=== PATIENT | male | born 1975 | race African-American/Black ===

== ENCOUNTER 2019-04-23 07:30 | Inpatient (IN) | payer OTHER ==
[~2019-04-23 07:30] MED LIST: Buffered Lidocaine 1% SYRIN* 1 ML/SYRINGE INTRADERM ONE; Dexamethasone IV* 4 MG/ML 1 ML (4 MG) IV SLOW PU ONE; Famotidine IV* 10 MG/ML 2 ML (20 mg) IV ONE; Lactated Ringers 1000 ML Bag* 1,000 ML IV SCH; Tranexamic Acid 1,000 MG in NS 0.9% 50 ML* (outpatient use) IV SCH
[2019-04-23] MEDS ORDERED: Buffered Lidocaine 1% SYRIN* 1 ML/SYRINGE INTRADERM ONE (09:18)
[2019-04-23] MEDS ORDERED: Dexamethasone IV* 4 MG/ML 1 ML (4 MG) ONE ×2 (09:24→09:51)
[2019-04-23] MEDS ORDERED: Famotidine IV* 10 MG/ML 2 ML (20 mg) ONE (09:25)
[2019-04-23] MEDS ORDERED: ceFAZolin 2 GM in NS PREMIX(*) 2 GM/100 ML BAG IVPB ONE (09:25)
[2019-04-23] MEDS ORDERED: Midazolam* 1 MG/ML 5 ML VIAL (5 MG) ONE (09:51)
[2019-04-23] MEDS ORDERED: fentaNYL* 50 MCG/ML 5 ML VIAL (250 MCG VIAL) ONE (09:51)
[2019-04-23] MEDS ORDERED: Ondansetron INJ* 2 MG/ML VIAL ONE (09:51)
[2019-04-23] MEDS ORDERED: Lidocaine 2% PF * 5 ML VIAL ONE (09:51)
[2019-04-23] MEDS ORDERED: Propofol* 10 MG/ML 20 ML BTL ONE (09:51)
[2019-04-23] MEDS ORDERED: Rocuronium* 10 MG/ML VIAL ONE (09:51)
[2019-04-23] MEDS ORDERED: KETAMINE HCL* 50 MG/ML 10 ML VIAL ONE (09:52)
[2019-04-23] MEDS ORDERED: Ketorolac INJ* 30 MG/ML 1 ML VIAL ONE (09:52)
[2019-04-23] MEDS ORDERED: ROPIVACAINE 5 MG/ML 30 ML BTL (0.5%) ONE (10:19)
[2019-04-23] MEDS ORDERED: Naloxone* 0.4 MG/ML 1 ML VIAL IV PRN (12:21)
[2019-04-23] MEDS ORDERED: fentaNYL* 50 MCG/ML 2 ML VIAL (100 MCG VIAL) IV PRN (12:21)
[2019-04-23] MEDS ORDERED: Ondansetron INJ* 2 MG/ML VIAL IV PRN ×2 (12:21→13:46)
[2019-04-23] MEDS ORDERED: HYDROmorphone INJ1* 1 MG/ML SYRINGE ONE ×2 (12:57→14:11)
[2019-04-23] MEDS ORDERED: oxyCODONE TAB* 5 MG TAB PO PRN (13:46)
[2019-04-23] MEDS ORDERED: Polyethylene Glycol 3350* 17 GM PACKET PO PRN (13:46)
[2019-04-23] MEDS ORDERED: Morphine 4 MG/ML VIAL (1 ml) 4 MG/ML VIAL IV PRN (13:46)
[2019-04-23] MEDS ORDERED: Cyclobenzaprine TAB* 10 MG PO PRN (13:46)
[2019-04-23] MEDS ORDERED: diPHENhydraMINE IV* 50 MG/ML 1 ml VIAL (BENADRYL) IV PRN (13:46)
[2019-04-23] MEDS ORDERED: Bisacodyl SUPP* 10 MG SUPP PR PRN (13:46)
[2019-04-23] MEDS ORDERED: Magnesium Hydroxide LIQ* 30 ML UDC PO PRN (13:46)
[2019-04-23] MEDS ORDERED: diPHENhydraMINE PO* 25 MG PO PRN (13:46)
[2019-04-23] MEDS ORDERED: traMADol TAB* 50 MG PO PRN (13:46)
[2019-04-23] MEDS: HYDROmorphone INJ1* 1 MG/ML SYRINGE IV PRN ×2 (14:20→14:38)
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
[2019-04-23] MEDS: Lactated Ringers 1000 ML Bag* 1,000 ML IV SCH (16:37)
--- NOTE | 2019-04-23 17:23 | PN ---
Progress Note - Progress Note Date of Service: 04/23/19 - post-op Note: Patient was walking with PT when I arrived. He denies CP, SOB, calf pain or dizziness. His pain is well controlled. He can dorsi/plantar flex bilateral ankles with intact sensation and 2+ DP pulses. Skin is warm, calves are soft. Continue PT/OT with pain management and we will monitor.
[2019-04-23] MEDS ORDERED: Latanoprost 0.005%* 2.5 ml BTL BOTH EYES SCH (18:00)
[2019-04-23] MEDS: oxyCODONE/Acetamin 5/325 MG* TAB PO PRN (19:13)
[2019-04-23] MEDS: ceFAZolin 1 GM ADVAN(*) 1 GM in NS 0.9% 50 ML* 50 ML IVPB SCH (20:37)
[2019-04-23] MEDS ORDERED: Sertraline* 50 MG TAB PO SCH (21:00)
[2019-04-23] MEDS: Magnesium Hydroxide LIQ* 30 ML UDC PO SCH (22:22)
[2019-04-23] MEDS: Latanoprost 0.005%* 2.5 ml BTL BOTH EYES SCH ×2 (22:22→22:34)
[2019-04-23] MEDS: Docusate CAP* 100 MG PO SCH (22:22)
[2019-04-23] MEDS: Acetaminophen TAB* 325 MG PO SCH (22:23)
--- NOTE | 2019-04-23 22:48 | OP ---
Operative Report - Blank - Operative Report Date of Operation: 04/23/19 Note: JENNIFER VENCES 1975 Date Of Surgery: 04/23/19 Areli Dove MD Sewer Builder: Macario FORD did help throughout the procedure with preparation of the hip, wound retraction, manipulation of the hip, and wound closure. Anesthesiologist: Dr. Maradiaga Anesthesia Type: General Preoperative Diagnosis: side severe degenerative osteoarthritis of the hip Postoperative Diagnosis: As above Procedure Performed: Left Total Hip Arthroplasty Complications: None Specimen: Femoral head and acetabular reamings sent to pathology. Hardware used: This is uncemented [place] total hip arthroplasty hardware for the femur a size 5 accolade II with 127 neck angle femoral component, for the acetabulum a size 56F trident II tritanium cluster hole shell, one 15 mm screw, for the insert a size 40F trident x3 polyethylene insert, and for the femoral head a size 40 +0 ceramic biolox V40 femoral head. Brief history/Indication: JENNIFER VENCES was known in clinic and had a history of severe left hip pain. He failed conservative treatment with anti- inflammatories, pain pills, intra-articular injections and physical therapy. He elected to undergo left total hip arthroplasty due to continued pain and decreased quality of life. Radiographs showed severe end stage osteoarthritis of the hip with bone on bone contact. Informed consent was obtained from the patient. He understood the risks of surgery included but were not limited to: bleeding, infection, damage to nearby structures, intraoperative fracture, nerve palsy, failure of the hardware, early loosening, stiffness or loss of motion, dislocation, leg length discrepancy, anesthesia complications, stroke, heart attack, blood clot and . He wished to proceed. Intra-Operative findings: Intraoperatively the patient was noted to have severe loss of cartilage of the acetabulum and femoral head. Description of the Procedure: JENNIFER VENCES was identified in the preanesthesia unit. His left hip was marked as the correct operative side. Informed consent was signed and placed in the chart. The patient was taken to the operating room and placed under anesthesia without complication. A jeffers catheter was placed. The patient was placed on the peg board with all bony prominences well padded. The left lower extremity was prepped and draped in the usual sterile fashion. Preoperative time -out was made to correctly identify the patient, side and site. Appropriate intraoperative antibiotics were given within one hour of incision. A standard posterior incision was made and carried sharply down to the lateral fascia. A new 10 blade was used to make an incision in the fascia in line with the skin incision. A charnley retractor was placed. The piriformis and conjoined tendons were identified and elevated off the posterolateral femur using electrocautery. These were tagged with number 5 Ethibond. Next electrocautery was used to make a posterolateral capsular flap and this was tagged with number 5 Ethibonds. The hip was carefully dislocated. Lesser trochanter to the center of the femoral head was measured at 65 mm. The oscillating saw was used to make the femoral neck cut. The femoral head was carefully removed. The femur was retracted anteriorly and the acetabular retractors were placed. Long-handled knife was used to sharply remove any remaining labrum from the acetabular rim. The acetabulum was sequentially reamed up to a size 56. A bleeding subchondral bone bed was obtained. A trial liner was placed and had excellent fit and stability. A 56F trident II tritanium cup with one 15 mm screw was placed and had excellent stability with appropriate anteversion and abduction angle. A size 40 F polyethylene liner was impacted into the acetabular shell. The liner was checked for stability and was stable. Next attention was turned to preparation of the femoral canal. A canal finder was used to enter the proximal femur. The femoral canal was sequentially broached up to a size 5 femoral broach trial. A trial neck and 40 + 0 trial femoral head was chosen. Lesser trochanter to center of the femoral head measurement was satisfactory. The hip was reduced and taken through a range of motion. The hip was stable in all positions with good soft tissue tension and appropriate leg lengths. The hip was dislocated and all trials were removed. The final implant chosen was a size 5 accolade II with 127 neck angle. This stem was impacted into the femoral canal without difficulty. The stem was stable with appropriate anteversion. The femoral head chosen was a 40 + 0 ceramic head with appropriate sleeve. The head was impacted onto the femoral neck without difficulty. The final lesser trochanter to center of the femoral head measurement was satisfactory. The hip was reduced and taken through a range of motion. The hip was stable in all positions with good soft tissue tension and appropriate leg lengths. The hip was copiously irrigated with sterile saline. The previously tagged capsule and tendons were repaired to the posterolateral femur through two trochanteric drill holes. The lateral fascia layer was closed using number 1 vicryls. The rest of the incision was closed in a layered fashion using 0 and 2-0 vicryls. The skin was closed using 3-0 monocryl suture and Dermabond. Sterile adaptic, 4x4s and paper tape was used to cover the incision. The patients anesthesia was reversed without difficulty. He was taken to the PACU in stable condition. Intended weight-bearing will be as tolerated with posterior hip precautions.
[2019-04-24] MEDS: oxyCODONE/Acetamin 5/325 MG* TAB PO PRN ×2 (00:33→06:19)
[2019-04-24] MEDS: Latanoprost 0.005%* 2.5 ml BTL BOTH EYES SCH (00:35)
[2019-04-24] MEDS: Lactated Ringers 1000 ML Bag* 1,000 ML IV SCH (02:45)
[2019-04-24] MEDS: ceFAZolin 1 GM ADVAN(*) 1 GM in NS 0.9% 50 ML* 50 ML IVPB SCH ×2 (04:22→11:53)
[2019-04-24 05:59] LABS: Hematocrit 38 % (42-52); Hemoglobin 12.9 g/dL (14.0-18.0); Mean Platelet Volume 7.1 fL (7.4-10.4); Platelet Count 203 10^3/uL (150-450)
[2019-04-24 06:14] LABS: Calcium 8.8 mg/dL (8.6-10.3); Potassium 4.1 mmol/L (3.5-5.0)
[2019-04-24] MEDS: Acetaminophen TAB* 325 MG PO SCH (06:15)
[2019-04-24 06:19] LABS: BUN/Creatinine Ratio 11.6 (8-20); EGFR African American 105.2 (>60); EGFR Non-African American 86.9 (>60)
[2019-04-24] MEDS: Magnesium Hydroxide LIQ* 30 ML UDC PO SCH (08:52)
[2019-04-24] MEDS: Docusate CAP* 100 MG PO SCH (08:57)
[2019-04-24] MEDS ORDERED: Apixaban* 2.5 MG TAB PO SCH (09:00)
[2019-04-24] MEDS ORDERED: Lisinopril TAB* 10 MG PO SCH (09:00)
[2019-04-24] MEDS ORDERED: LISINOPRIL 30 MG PO SCH (09:00)
[2019-04-24] MEDS ORDERED: amLODIPine TAB* 5 MG PO SCH (09:00)
[2019-04-24] MEDS ORDERED: NON FORMULARY MED* (Amlodipine Besylate [Norvasc] 10 MG) PO SCH (09:00)
[2019-04-24 11:19] VITALS: BP 145/76
--- NOTE | 2019-04-24 11:30 | DS ---
Orthopedic Discharge Summary - Discharge Summary Date of Admission:04/23/19 Date of Discharge: 04/24/19 Date of Surgery: 04/23/19 Attending Orthopedic Provider: Dr. Dove Pre-operative Diagnosis: Degenerative arthritis left hip Operative Procedure: Left total hip arthroplasty Disposition of Patient: [facility] Condition of Patient: stable History: JENNIFER [id number] VANGIE is a 44 year old M with years of increasingly severe left pain. Patient has failed conservative management and has elected to undergo a left total hip replacement Hospital Course: JENNIFER was admitted to [facility] on 04/23/19. Patient underwent a left total hip replacement without complication followed by a brief recovery in PACU and transfer to the Short Stay Surgical Unit in stable condition. Our hospitalist service, physical therapy and occupational therapy also participated in this patients care. Post-op day 1: patient was alert and in no acute distress. Dressing was clean, dry and intact. Operative extremity dorsiflexion and plantarflexion intact, sensation intact to light touch distally , DP2+. His left dressing was changed, incision was clean, dry and intact. Patient was deemed to be medically and orthopedically stable for discharge. Physical therapy goals were met. Home Medications Medication Instructions Recorded Confirmed Type Amlodipine Besylate [Norvasc] 10 mg PO QAM 04/09/19 04/23/19 History Latanoprost 0.005%* [Xalatan 1 drop BOTH EYES QPM 04/09/19 04/23/19 History 0.005%*] Lisinopril 30 mg PO QAM 04/09/19 04/23/19 History Sertraline* [Zoloft*] 50 mg PO BEDTIME 04/09/19 04/23/19 History diphenhydrAMINE HCl 50 mg PO BID 04/09/19 04/23/19 History [Diphenhydramine HCl] Acetaminophen TAB* [Tylenol TAB*] 975 mg PO Q8HR tab 04/24/19 Rx Apixaban* [Eliquis*] 2.5 mg PO BID tab 04/24/19 Rx Docusate CAP* [Colace Cap*] 100 mg PO BID cap 04/24/19 Rx oxyCODONE/Acetamin 5/325 MG* 1 - 2 tab PO Q4H PRN #56 tab MDD 8 04/24/19 Rx [Percocet 5/325 TAB*] Discharge Instructions following Orthopedic Surgery: Activity: * Weight Bearing as tolerated * Continue physical therapy and occupational therapy exercises as shown Hip replacements: Continue Hip Precautions- do not cross legs or bend greater than 90 degrees/squat Wound care: * OK to shower on post-op day 3, no bathing, swimming, or submerging wound. * Use gentle soap, pat dry. Cover with gauze, ESTELA wrap or tape. * Visiting home nurse to do wound checks. Call Orthopedic office for: * Increased drainage * Redness * Increased pain * Fever Go to ER with shortness of breath or chest pain. Diet: * Regular diet * Increase fluids and fiber to prevent constipation. * Continue to use stool softeners, call office if no bowel motion within 48 hours. Medications See Home Medication List in your packet for medications that you should take after discharge. DVT Prophylaxis: Eliquis Dosin.5 mg, 1 tab every 12 hours x 30 days Pain Control: Percocet Dosin/325 mg 1-2 tabs by mouth every 4-6 hours as needed for pain. Maximum of 8 tabs per day. Please note that Percocet contains Tylenol (acetaminophen). Maximum daily dose of Tylenol is 4000 mg from all sources. Antibiotics are required prior to any dental work. FOLLOW UP: Follow up with Dr. Dove Within 10-14 days, call for appointment Please call our office with any questions or concerns ([phone])
== END 2019-04-24 14:30 | DRG 301 ==
LOC: AA 09:11 → EEVIPCON 09:11 → SSU 15:30
PROVIDERS: ADMIT Orthopaedic Surgery Adult Reconstructive Orthopaedic Surgery; ATTEND Orthopaedic Surgery Adult Reconstructive Orthopaedic Surgery
PROC: 0SRB049 Replacement of Left Hip Joint with Ceramic on Polyethylene Synthetic Substitute, Cemented, Open Approach (ICD-10-PCS; principal; 2019-04-23 09:00)
DX: M16.12 Unilateral primary osteoarthritis, left hip (principal); I10 Essential (primary) hypertension; H40.9 Unspecified glaucoma; G89.29 Other chronic pain; Z79.01 Long term (current) use of anticoagulants
CPT/HCPCS: 36415; 80048; 85014; 85018; 85049; 88304; 88311; A9270-GY; C1776; J0690; J1100; J1170; J1885; J2250; J2405; J2704; J2795; J3010